=== PATIENT | female | born 1965 | race Caucasian/White ===

== ENCOUNTER 2018-02-22 17:29 | Emergency (ER) | payer SELFPAY ==
[~2018-02-22] VITALS: Ht 162.6 cm; Wt 68.2 kg
[2018-02-22 17:32] VITALS: Ht 162.6 cm; Wt 68.2 kg
[2018-02-22] MEDS ORDERED: METOPROLOL TART50 MG PO (20:41)
[2018-02-22] MEDS ORDERED: ZESTRIL40 MG PO (20:41)
[2018-02-22 20:58] VITALS: BP 159/108
== END 2018-02-22 20:58 | disposition home or self-care (01) ==
LOC: D.ER 17:29
DX: S93.401A Sprain of unspecified ligament of right ankle, initial encounter (principal); W17.81XA Fall down embankment (hill), initial encounter; Y93.89 Activity, other specified; Y92.828 Other wilderness area as the place of occurrence of the external cause; I10 Essential (primary) hypertension; F17.200 Nicotine dependence, unspecified, uncomplicated